=== PATIENT | female | born 1990 | race Caucasian/White ===

== ENCOUNTER 2019-04-24 05:24 | Inpatient (IN) | payer BC ==
[2019-04-24 05:51] VITALS: BMI 27.9
[2019-04-24] MEDS ORDERED: Lidocaine 1% (PF) 30 ML VIAL SC PRN (10:30)
[2019-04-24] MEDS ORDERED: Methylergonovine 0.2 MG/ML VIAL IM PRN (10:30)
[2019-04-24] MEDS ORDERED: Acetaminophen 500 MG TAB PO PRN (10:30)
[2019-04-24] MEDS ORDERED: Misoprostol 200 MCG TAB PR PRN (10:30)
[2019-04-24] MEDS ORDERED: Diphenoxylate HCl/Atropine Tablet PO PRN ×2 (10:30)
[2019-04-24] MEDS ORDERED: Butorphanol Tartrate 1 MG/ML VIAL SLOW IVP PRN (10:30)
[2019-04-24] MEDS ORDERED: hydrALAZINE 20 MG/ML VIAL SLOW IVP PRN ×2 (10:30→18:11)
[2019-04-24] MEDS ORDERED: Promethazine HCl 25 MG/ML VIAL IM PRN ×3 (10:30→18:11)
[2019-04-24] MEDS ORDERED: HYDROcodone/Acetaminophen 5/325 mg Tablet PO PRN ×4 (10:30→18:11)
[2019-04-24] MEDS ORDERED: NS w/ Oxytocin 10 units 500 ML IV SCH (10:30)
[2019-04-24] MEDS ORDERED: Ondansetron PF 4 MG/2 ML Vial IVP PRN ×3 (10:30→18:11)
[2019-04-24] MEDS ORDERED: Carboprost 250 MCG/ML AMP IM PRN (10:30)
[2019-04-24] MEDS ORDERED: NS / Oxytocin 40 units/1000ml 1,000 ML IV PRN (10:30)
[2019-04-24] MEDS ORDERED: Ibuprofen 800 MG TAB PO PRN (10:30)
--- NOTE | 2019-04-24 10:43 | PDOC.LDHP ---
Labor and Delivery H&P Chief complaint: contractions HPI: 29 y/o at 39w3d presents with ctx since 0241. She reports they started at q10 mins and have gotten more frequent and painful. Denies VB, LOF, or decreased FM. ROS neg for HEENT, cv, pulm, gi, gu, neuro, psych, skin, musculoskeletal or constitutional symptoms other than mentioned above. OB History Details: 2 prior term SVDs Current complications: none Past Medical History: None Current medications: pre-sly vitamins Previous surgical history: none Allergies/Adverse Reactions: Allergies Allergy/AdvReac Type Severity Reaction Status Date / Time No Known Allergies Allergy Verified 12/22/15 05:59 Social history: none - Physical Exam Vital signs reviewed and normal: yes General: NAD, resting Lungs: nonlabored breathing Abdomen: gravid Extremeties: no edema FHT: category 1 (130s, mod variability, + accels, no decels) [place] contractions every: 3 mins - Vaginal Exam cm dilated: 4 Effacement: 25% Station: -2 - OB Labs Blood type: A RH: positive Antibody Screen: negative HIV: negative RPR: negative HEPSAg: negative 1 hour GCT: negative GBS: negative Rubella: immune - Assessment L&D Assessment: term patient in labor - Plan Plan: admit to L&D, labor augmentation if indicated, informed consent obtained, anesthesia consult for pain management (if desired)
[2019-04-24] MEDS: Lactated Ringer's 1,000 ML IV SCH ×3 (11:52→14:23)
[2019-04-24] MEDS ORDERED: Bupivacaine 0.25% HCL 30 ML VIAL ONE (12:05)
[2019-04-24] MEDS ORDERED: ePHEDrine/0.9% NaCl/PF SYRINGE 50 mg/10 ml ONE (12:05)
[2019-04-24 12:10] LABS: Hemoglobin 12.3 g/dL (12.0-16.0); Mean Corpuscular HGB CONC 32.9 g/dL (32.0-36.0); Mean Corpuscular Hemoglobin 28.1 pg (27.0-31.0); Mean Corpuscular Volume 85.5 fL (78.0-98.0); Mean Platelet Volume 10.7 fL (7.4-10.4); Platelet Count 135 thou/uL (130-400); RBC Distribution Width 14.3 % (11.5-14.5); Red Blood Cell (RBC) Count 4.38 mill/uL (4.20-5.40); White Blood Cell (WBC) Count 7.8 thou/uL (4.8-10.8)
[2019-04-24] MEDS ORDERED: Fentanyl 4 mcg/Bup 0.1% Cadd 100 ML ONE (12:53)
--- NOTE | 2019-04-24 13:18 | PDOC.LDPN ---
Labor & Delivery Progress Note - Subjective Subjective: painful contractions - Objective Vital signs reviewed and normal: yes General: NAD Uterine fundus: non tender Dilation: 4 Effacement: 75% Station: -2 FHT: category 1 [place] contractions every: 2min AROM: clear fluid Plan: labor augmentation
[2019-04-24 13:35] LABS: Syphilis Antibody Nonreactive (Nonreactive); Syphilis Antibody Index 0.06 S/CO (<1.00 Non-Reactive)
[2019-04-24 13:36] LABS: HBSAg Index 0.16 S/CO (0-0.99); Hep B Surf Ag Non-Reactive S/CO (NonReactive)
[2019-04-24] MEDS ORDERED: Lactated Ringer's 500 ML IV PRN (14:05)
[2019-04-24] MEDS ORDERED: ePHEDrine/0.9% NaCl/PF SYRINGE 50 mg/10 ml SLOW IVP PRN (14:05)
[2019-04-24] MEDS ORDERED: Acetaminophen 325 MG TAB PO PRN (14:05)
[2019-04-24] MEDS ORDERED: diphenhydrAMINE 50 MG/ML VIAL IVP PRN (14:05)
[2019-04-24] MEDS ORDERED: Naloxone HCl 0.4 mg/ml Vial IVP PRN ×2 (14:05)
[2019-04-24] MEDS ORDERED: Fentanyl 4 mcg/Bupivacaine 0.1% Cassette 100 ML EPIDURAL SCH (14:15)
[2019-04-24] MEDS ORDERED: Communication Order-Pharmacy FS PRN (14:15)
[2019-04-24] MEDS ORDERED: Lidocaine 1% (PF) 30 ML VIAL ONE (16:31)
[2019-04-24] MEDS ORDERED: NS / Oxytocin 40 units/1000ml 1,000 ML ONE (16:32)
--- NOTE | 2019-04-24 16:58 | PDOC.OPDEL ---
OB Operative/Delivery Note Delivery Dr/Surgeon: Lynne Assist: n/a Pre-Delivery Diagnosis: active labor Procedure/Post Delivery Dx: spontaneous vaginal delivery Weeks gestation: 39 Anesthesia: epidural - Findings A Sex: male - 1 min: 8 - 5 min: 9 - Additional Findings/Plan Placenta delivered: spontaneous Repaired Obstetrical Laceration: none Estimated blood loss: 200 Post delivery plan: routine recovery
[2019-04-24] MEDS ORDERED: Milk Of Magnesia 30 ML UDCUP PO PRN (18:11)
[2019-04-24] MEDS ORDERED: Benzocaine-Menthol 82.5 ML CAN TOP PRN (18:11)
[2019-04-24] MEDS ORDERED: diphenhydrAMINE 25 MG CAP PO PRN (18:11)
[2019-04-24] MEDS ORDERED: Preparation H Ointment 57 gram tube RC PRN (18:11)
[2019-04-24] MEDS ORDERED: Lanolin Ointment 7 GM TUBE TOP PRN (18:11)
[2019-04-24] MEDS ORDERED: Bisacodyl 10 MG SUPP PR PRN (18:11)
[2019-04-24] MEDS ORDERED: NS / Oxytocin 40 units/1000ml 1,000 ML IV SCH (18:11)
[2019-04-24] MEDS ORDERED: Ferrous Sulfate 325 MG TAB PO SCH (18:30)
[2019-04-24] MEDS: Docusate Calcium (SURFAK) 240 MG CAP PO SCH (21:12)
[2019-04-24] MEDS: Ibuprofen 800 MG TAB PO SCH (21:12)
[2019-04-25] MEDS: Ibuprofen 800 MG TAB PO SCH ×3 (05:26→21:19)
[2019-04-25] MEDS: Ferrous Sulfate 325 MG TAB PO SCH ×2 (07:31→17:33)
[2019-04-25] MEDS ORDERED: Adacel (T-DAP) 0.5 ML SYRINGE IM ONE (09:00)
[2019-04-25] MEDS: Docusate Calcium (SURFAK) 240 MG CAP PO SCH ×2 (09:24→21:18)
[2019-04-25] MEDS: Prenatal Vitamin 1 TAB PO SCH (09:24)
--- NOTE | 2019-04-25 16:54 | PDOC.PP ---
Post Progress Note Post Day #: 1 PO intake tolerated: yes Flatus: yes Ambulation: yes Vital Signs (12 hours) Temp Pulse Resp BP Pulse Ox 04/25/19 11:53 98.5 F 95 20 125/74 04/25/19 08:29 98.5 F 93 20 102/54 L 97 Weight Weight 174 lb - Physical Examination General: NAD Respiratory: non-labored breathing Abdominal: no distention, appropriately TTP Skin: no rash Neurological: no gross focal deficits Psychiatric: normal affect Result Diagrams: 04/24/19 11:52 Additional Labs: Post Labs Blood Type A POSITIVE 04/24/19 12:40 Hep Bs Antigen Non-Reactive S/CO (NonReactive) 04/24/19 12:40 - Assessment/Plan PPD1 s/p TSVD VSSAF Doing well, no issues, bleeding < menses Pain controlled Rh pos RImm Cont PP group home tomorrow
[2019-04-26 08:17] VITALS: BP 111/68; TEMP 98
--- NOTE | 2019-04-26 08:36 | PDOC.PP ---
Post Progress Note Post Day #: 2 Subjective: PT doing well PPD2. Minimal lochia. She is breast pumping. No pain. She is urinating normally. No symptoms or concerns at this time. PO intake tolerated: yes Flatus: yes Ambulation: yes Vital Signs (12 hours) Temp Pulse Resp BP Pulse Ox 04/26/19 08:16 98.0 F 91 20 111/68 97 Weight Weight 174 lb - Physical Examination General: NAD Respiratory: non-labored breathing Abdominal: + bowel sounds, lochia, no distention, appropriately TTP Fundus firm & at: 1 cm below umbilicus Extremities: negative homans (B) Skin: no rash Neurological: no gross focal deficits Psychiatric: A&Ox3, normal affect Result Diagrams: 04/24/19 11:52 Additional Labs: Post Labs Blood Type A POSITIVE 04/24/19 12:40 Hep Bs Antigen Non-Reactive S/CO (NonReactive) 04/24/19 12:40 - Assessment/Plan Pt doing well PPD2. VSS, Afebrile. Patient will continue breast pumping. Plan for discharge this am. Discharge planning and follow up discussed.
[2019-04-26] MEDS: Ferrous Sulfate 325 MG TAB PO SCH (08:39)
[2019-04-26] MEDS: Ibuprofen 800 MG TAB PO SCH (08:40)
[2019-04-26] MEDS: Docusate Calcium (SURFAK) 240 MG CAP PO SCH (09:27)
[2019-04-26] MEDS: Prenatal Vitamin 1 TAB PO SCH (09:27)
== END 2019-04-26 13:30 | disposition home or self-care (01) | DRG 807 ==
LOC: L&D/OP 05:24 → L&D 12:03 → 3SW 20:18
PROVIDERS: ADMIT Student in an Organized Health Care Education/Training Program; ATTEND Student in an Organized Health Care Education/Training Program
PROC: 10E0XZZ Delivery of Products of Conception, External Approach (ICD-10-PCS; principal; 2019-04-24)
PROC: 10907ZC Drainage of Amniotic Fluid, Therapeutic from Products of Conception, Via Natural or Artificial Opening (ICD-10-PCS; 2019-04-24)
DX: O80 Encounter for full-term uncomplicated delivery (principal); Z37.0 Single live birth; Z3A.39 39 weeks gestation of pregnancy
CPT/HCPCS: 36415; 51702; 85027; 86780; 86850; 86900; 86901; 87340; 99285; J2001; J2590; S0020